=== PATIENT | female | born 1995 | race Caucasian/White ===

== ENCOUNTER 2017-02-10 19:26 | Emergency (ER) | payer OTHER ==
--- NOTE | 2017-02-10 19:29 | PDOC ---
History of Present Illness - History of Present Illness Initial Comments: 02/10/17 19:50 The patient is a 22 year old female, with a significant past medical history of obesity and diabetes (discontinued metformin a while ago), who presents to the emergency department with intermittent upper abdominal pain since 10:30 AM today with new onset of nonbloody emesis 30 minutes prior to ED arrival. The patient also reports having one episode of loose stool today, however, reports her last normal bowel movement to be yesterday morning. She reports her pain intermittently radiates across the bilateral upper abdominal quadrants. She reports drinking Coca-Cola as suggested by her mother to produce gas with little to no alleviation of her symptoms. The patient states she did not eat prior to the onset of her symptoms, however, states she ate two pieces of chicken francese with a couple bites of pasta that did not taste right at 2: 30AM. She denies chest pain, shortness of breath, headache and dizziness. She denies fever, chills, hematochezia and constipation. She denies dysuria, frequency, urgency and hematuria. PAST MEDICAL HISTORY: obesity and diabetes (previously on metformin) PAST SURGICAL HISTORY: no significant history FAMILY HISTORY: no pertinent history SOCIAL HISTORY: Pt lives with family and is employed. MEDICATIONS: reviewed ALLERGIES: As per nursing notes Adult ROS General: No fevers or chills, no weakness, no weight loss HEENT: No change in vision. No sore throat,. No ear pain CardioVascular: No chest pain or shortness of breath Respiratory:No cough, or wheezing. Gastrointestinal: (+) epigastric pain, nausea, vomiting, diarrhea. No constipation, No rectal bleeding Genitourinary: No dysuria, hematuria, or frequency Musculoskeletal: No joint or muscle pain or swelling Neurologic: No headache, vertigo, dizziness or loss of consciousness Psychiatric: nor depression Skin: No rashes or easy bruising Endocrine: no increased thirst or abnormal weight change Allergic: no skin or latex allergy All other systems reviewed and normal Adult Exam: General: Well-nourished well-developed individual, no acute distress HEENT: Throat: Normal, tonsils normal, no erythema or exudate Neck: Supple, no meningeal signs, no lymphadenopathy Eyes::Pupils equal reactive and round, extraocular motion intact Chest: Nontender to palpation Cardiac: S1-S2 normal, regular rate and rhythm, no murmurs rubs or gallops Respiratory: Lungs clear to auscultation bilateral Abdomen: Soft, nondistended, normal bowel sounds, nontender to palpation diffusely Extremities: Warm, dry, no cyanosis, clubbing, or edema Skin: No rashes Neuro: Alert and oriented x3, nonfocal exam, grossly intact, normal gait Psych: Normal mood and affect <Sofia Valle - Last Filed: 02/10/17 21:36> - General History Source: Patient Exam Limitations: No Limitations - History of Present Illness Initial Comments: 02/10/17 21:38 A portion of this note was documented by scribe services under my direction. I have reviewed the details of the note, within reason, and agree with the documentation. The case summary and management plan written by me. Assessment and plan: This is an obese 22-year-old female who comes in complaining of upper abdominal pain. Patient said she's pain has been intermittent and crampy in nature since approximately 10 AM this morning. Patient had eaten some food at approximately 2:30 AM that she thought might be bad. Patient is had one associated episode of diarrhea and 2 episodes of vomiting the most recent one shortly before coming to the ED with it. Patient had a workup including labs that were unremarkable with the exception of a mildly elevated white count of 10.9. There was no left shift. Patient had an ultrasound that showed a fatty liver but otherwise unremarkable with a gallbladder that showed no stones or sludge. Patient feels better in the emergency room and will be discharged home and follow-up with her doctor as needed Patient given copies of her ultrasound report as well as her blood work. <Brien Wilcox I - Last Filed: 02/10/17 21:41> - General Chief Complaint: Pain, Acute Stated Complaint: UPPER ABDOMINAL PAIN Time Seen by Provider: 02/10/17 19:29 Past History <Sofia Valle - Last Filed: 02/10/17 21:36> - Past Medical History Disorders: Yes (PCOS) - Immunization History Immunization Up to Date: Yes - Psycho/Social/Smoking Cessation Hx Anxiety: No Suicidal Ideation: No Smoking History: Never smoked Hx Alcohol Use: No Substance Use Type: None <Brien Wilcox I - Last Filed: 02/10/17 21:41> - Past Medical History Allergies/Adverse Reactions: Allergies Allergy/AdvReac Type Severity Reaction Status Date / Time No Known Allergies Allergy Verified 02/10/17 19:27 Home Medications: Ambulatory Orders NK [No Known Home Medication] 02/10/17 *Physical Exam - Vital Signs Last Vital Signs Temp Pulse Resp BP Pulse Ox 99.2 F 86 16 135/82 99 02/10/17 19:29 02/10/17 19:29 02/10/17 19:29 02/10/17 19:29 02/10/17 19:29 <Sofia Valle - Last Filed: 02/10/17 21:36> ED Treatment Course - LABORATORY CBC & Chemistry Diagram: 02/10/17 19:50 02/10/17 19:50 - ADDITIONAL ORDERS Additional order review: Laboratory Results 02/10/17 19:34 Urine Color Yellow Urine Appearance Clear Urine pH 7.0 Ur Specific [place] 1.020 Urine Protein Negative Urine Glucose (UA) Negative Urine Ketones Negative Urine Blood Negative Urine Nitrite Negative Urine Bilirubin Negative Urine Urobilinogen 0.2 e.u/dl Ur Leukocyte Esterase Negative Urine HCG, Qual Negative - RADIOLOGY Radiograph Interpretation: 02/10/17 21:15 Preliminary read of the patient's CXR by Dr. Wilcox reveals no acute pathology. 02/10/17 21:36 EXAM: Ultrasound abdominal right upper quadrant was read by Ramiro Dsouza MD. at 21:34 EST IMAGES: 40 EXAM DATE AND TIME: 2017-02-10 20:26:29.0 FINDINGS: The gallbladder is mildly contracted. There is no evidence of cholelithiasis, sludge or polyp. The gallbladder wall is normal in thickness, measuring 2 mm. There is no pericholecystic fluid. There is no evidence of ascites fluid. The common bile duct is normal in diameter, measuring 4 mm in diameter. The liver is normal in size, measuring 16.6 cm in length. The hepatic parenchyma exhibits diffuse increased echogenicity suggesting diffuse fatty infiltration. There is no evidence of intrahepatic biliary ductal dilatation. There is no evidence of a hepatic mass or cystic lesion. The pancreatic head and body appear normal in size, contour and echotexture. IMPRESSION: Diffuse hepatic steatosis. The study is otherwise unremarkable. No evidence of cholelithiasis. <Sofia Valle - Last Filed: 02/10/17 21:36> - LABORATORY CBC & Chemistry Diagram: 02/10/17 19:50 02/10/17 19:50 <Brien Wilcox I - Last Filed: 02/10/17 21:41> *DC/Admit/Observation/Transfer - Attestations Scribe Attestion: 02/10/17 19:51 Documentation prepared by Sofia Valle, acting as manager medical writing for Brien Wilcox MD <Sofia Valle - Last Filed: 02/10/17 21:36> - Discharge Dispostion Admit: No <Brien Wilcox I - Last Filed: 02/10/17 21:41> Diagnosis at time of Disposition: Abdominal pain Qualifiers: Abdominal location: upper abdomen, unspecified Qualified Code(s): R10.10 - Upper abdominal pain, unspecified - Discharge Dispostion Disposition: HOME Condition at time of disposition: Stable - Patient Instructions Printed Discharge Instructions: DI for Abdominal Pain-Adult Additional Instructions: Return to the emergency department immediately with ANY new, persistent or worsening symptoms. Continue any medications as previously prescribed by your physician. You should follow up with your primary doctor as soon as possible regarding today's emergency department visit. . Please make sure your doctor reviews the results of your emergency evaluation. Thank you for coming to the Emergency Department today for your care. It was a pleasure to see you today. Please note that your evaluation is INCOMPLETE until you follow-up with your doctor.
[2017-02-10 19:34] VITALS: BP 135/82; PULSE 86; TEMP 99.2; BMI 51.5
[2017-02-10] MEDS ORDERED: SODIUM CHLORIDE 1,000 ML IV ONE (19:44)
[2017-02-10] MEDS ORDERED: HYOSCYAMINE SULFATE 0.125 MG *ODT PO ONE (19:45)
[2017-02-10 19:46] LABS: URINE APPEARANCE Clear; URINE BILIRUBIN Negative (NEGATIVE); URINE BLOOD Negative (NEGATIVE); URINE COLOR YELLOW; URINE GLUCOSE (UA) Negative (NEGATIVE); URINE KETONE Negative (NEGATIVE); URINE LEUK ESTERASE Negative (NEGATIVE); URINE NITRITE Negative (NEGATIVE); URINE PROTEIN Negative (NEGATIVE); URINE UROBILINOGEN 0.2 E.U/dl (0.2-1.0)
[2017-02-10] MEDS ORDERED: HYOSCYAMINE SULFATE 0.125 MG *ODT ONE (19:50)
[2017-02-10 20:04] LABS: BASOPHIL 0.8 % (0-2.0); EOSINOPHIL 0.9 % (0-4.5); MCH 26.7 pg (25.7-33.7); MCHC 34.4 g/dl (32.0-36.0); MEAN CELL VOLUME 77.7 fl (80-96); MEAN PLT VOLUME 9.9 fl (7.5-11.1); NEUTROPHILS 80.3 % (42.8-82.8); PLATELET COUNT 243 K/MM3 (134-434); RDW 14.5 % (11.6-15.6); WHITE BLOOD COUNT 10.9 K/mm3 (4.0-10.8)
[2017-02-10 20:14] LABS: ALK PHOS 54 U/L (32-92); ANION GAP 6 (8-16); BILIRUBIN,TOTAL 0.7 mg/dl (0.2-1.0); CALCIUM 8.6 mg/dl (8.4-10.2); CO2 24 mmol/L (22-28); CREATININE 0.7 mg/dl (0.6-1.3); GLUCOSE,RANDOM 90 mg/dl (74-106); SGOT/AST 18 U/L (10-42); SGPT/ALT 20 U/L (10-40); TOT PROT 6.8 g/dl (6.4-8.3)
== END 2017-02-10 21:46 | disposition home or self-care (01) ==
LOC: FER 19:26
PROC: 3E0337Z Introduction of Electrolytic and Water Balance Substance into Peripheral Vein, Percutaneous Approach (ICD-10-PCS; principal; 2017-02-10)
DX: R10.10 Upper abdominal pain, unspecified (principal)
CPT/HCPCS: 36415; 71010-TC; 76705-TC; 80053; 81003; 83690; 84703; 85025; 99282-25

== ENCOUNTER 2019-08-03 17:40 | Inpatient (IN) | payer OTHER ==
[2019-08-03] MEDS ORDERED: AMPICILLIN SODIUM 2 GM VIAL ONE (18:26)
[2019-08-03] MEDS: ELECTROLYTE-148 SOLN 1,000 ML IV SCH (18:30)
[2019-08-03 19:00] LABS: BASO % 0.6 % (0-2.0); EOS % 0.3 % (0-4.5); HEMATOCRIT 36.9 % (32.4-45.2); HEMOGLOBIN 11.8 GM/dL (10.7-15.3); MEAN CELL VOLUME 74.9 fl (80-96); MEAN PLT VOLUME 10.5 fl (7.5-11.1); MONO % 7.9 % (3.8-10.2); NEUT % 77.2 % (42.8-82.8); PLATELET COUNT 279 K/MM3 (134-434); RBC 4.93 M/mm3 (3.60-5.2); WHITE BLOOD COUNT 10.3 K/mm3 (4.0-10.0)
[2019-08-03 19:02] LABS: RETICULOCYTES 1.28 % (0.5-1.5)
[2019-08-03 19:14] LABS: INR 0.84 (0.83-1.09); PROTHROMBIN TIME (PATIENT) 9.9 SEC (9.7-13.0)
[2019-08-03 19:17] LABS: ACTIVATED PTT 27.7 SECONDS (25.2-36.5)
[2019-08-03 19:22] LABS: BLOOD UREA NITROGEN 11.7 mg/dL (7-18); CALCIUM 8.8 mg/dL (8.5-10.1); CREATININE 0.9 mg/dL (0.55-1.3); GAMMA GLUTAMYL TRANSPEPTIDASE 12 U/L (5-85); POTASSIUM 4.3 mmol/L (3.5-5.1); SGOT/AST 12 U/L (15-37); SGPT/ALT 17 U/L (13-61); URIC ACID 4.3 mg/dL (2.6-7.2)
[2019-08-03] MEDS ORDERED: PROMETHAZINE HCL 25 MG/1 ML VIAL ONE (19:26)
[2019-08-03] MEDS ORDERED: BUTORPHANOL TARTRATE 1 MG/ML VIAL ONE ×2 (19:26)
[2019-08-03 20:01] VITALS: BMI 51.2
--- NOTE | 2019-08-03 20:20 | HP ---
Past Medical History - Primary Care Physician PCP:: Gabby Kelly - Admission Chief Complaint: 24yo @ 39.6wks with painful contructions, no VB, no LOF, +FM;. She denies GARCIA, Visual changes, RUQ pain History of Present Illness: 1. Obesity - BMI 51, GCT normal twice, immpossible to evaluate EFW 2. GBS pos on Ampicillin 3. h/o Anxiety/depression - distant history 4. TDap and Flu vaccines in History Source: Patient, Medical Record Limitations to Obtaining History: No Limitations - Past Medical History ...: 1 ...Para: 0 ...Term: 0 ...: 0 ...Spon : 0 ...Induced : 0 ...Multiple Gestation: 0 ...LMP: 10/28/18 ... Weeks Gestation by Dates: 39.6 ...EDC by Sono: 08/04/19 - Past Surgical History Past Surgical History: Yes: None Hx Myomectomy: No Hx Transabdominal Cerclage: No - Advance Directives Advance Directives: Yes: Living Will - Smoking History Smoking history: Never smoked Have you smoked in the past 12 months: No - Alcohol/Substance Use Hx Alcohol Use: No History of Substance Use: reports: None - Social History Usual Living Arrangement: Yes: Alone Do you think of yourself as: Straight/Heterosexual History of Recent Travel: No Home Medications - Allergies Allergies/Adverse Reactions: Allergies Allergy/AdvReac Type Severity Reaction Status Date / Time No Known Allergies Allergy Verified 08/03/19 18:06 - Home Medications Home Medications: Ambulatory Orders Pnv No.95/Ferrous Fum/Folic AC [ Formula] 1 each PO DAILY 08/03/19 Review of Systems - Review of Systems Constitutional: reports: No Symptoms Eyes: reports: No Symptoms HENT: reports: No Symptoms Neck: reports: No Symptoms Cardiovascular: reports: No Symptoms Respiratory: reports: No Symptoms Gastrointestinal: reports: No Symptoms Breasts: reports: No Symptoms Reported, Other (Painfull COntructions) Musculoskeletal: reports: No Symptoms Integumentary: reports: No Symptoms Neurological: reports: No Symptoms Endocrine: reports: No Symptoms Hematology/Lymphatic: reports: No Symptoms Psychiatric: reports: No Symptoms Pain Intensity: 8 Physical Exam - Maternity Vital Signs: Vital Signs Temperature 97.8 F 12/16/19 18:45 Pulse Rate 79 08/03/19 18:45 Respiratory Rate 18 08/03/19 18:45 Blood Pressure 144/95 08/03/19 18:45 O2 Sat by Pulse Oximetry (%) Constitutional: Yes: Well Nourished, No Distress, Calm Eyes: Yes: WNL, Conjunctiva Clear, EOM Intact HENT: Yes: WNL, Atraumatic, Normocephalic Neck: Yes: WNL, Supple, Trachea Midline Cardiovascular: Yes: WNL, Regular Rate and Rhythm Lungs: Clear to auscultation Breast(s): Yes: WNL - Abdominal Exam/OB Fundal Height: 45 (large abdominal girth) Number of Fetuses: Single Presentation: Vertex Contractions: Yes Regularity: Regular (Q2 min) Intensity: Mod/Strong Monitor Mode: External Heart Rate (range): 145 Heart Rate Location: Midline Category: I Accelerations: Uniform Decelerations: None - Vaginal Exam/OB Vaginal Bleediing: No Speculum Exam: No Dilatation (cm): 4 Effacement (%): 90 Amniotic Membrane Status: Intact Presentation: Vertex/Position Station: -4 - Physical Exam Musculoskeletal: Yes: WNL Extremities: Yes: WNL Edema: Yes Edema: LUE: 1+, LLE: 1+ Integumentary: Yes: WNL ...Motor Strength: WNL Psychiatric: Yes: WNL, Alert, Oriented - Labs Lab Results: CBC, BMP 08/03/19 18:17 08/03/19 18:17 Assessment/Plan 24yo P0 @ 39.6wks in labor with mild preeclampsia Admit to L&D PEC labs, IVF, NPO Pain management now, anesthesia consult requested Unable to evaluate EFW, narrow pelvic outlet will monitor progress of labor and consider c/section if progress stalls will AROM to augment labor once 2nd dose of Ampicillin is given Concerns discussed with patient of possibility of Shoulder dystocia, c/section risks for her Will monitor BPs
[2019-08-03] MEDS ORDERED: NALOXONE HCL 0.4 MG/ML VIAL IVPUSH PRN (20:28)
[2019-08-03] MEDS ORDERED: LIDO 2%/EPI 1:200000 PRESRVFRE (20 ML SDVIAL) ONE (20:30)
[2019-08-03] MEDS ORDERED: FENTANYL/BUPIVACAINE/NS/PF - PCEA - 50 ML DISP.SYRIN EP ONE (20:33)
[2019-08-03] MEDS: FENTANYL/BUPIVACAINE/NS/PF - PCEA - 50 ML DISP.SYRIN EP SCH (20:45)
[2019-08-03] MEDS ORDERED: PHENYLEPHRINE HCL 10 MG/1 ML SINGLE DOSE VIAL ONE (21:07)
[2019-08-03] MEDS ORDERED: ePHEDrine SULFATE 50 MG/1 ML AMPULE ONE (21:07)
[2019-08-03] MEDS ORDERED: DEXTROSE 5%-LACTATED RINGERS 1,000 ML IV SCH (21:15)
[2019-08-03] MEDS ORDERED: BUTORPHANOL TARTRATE 1 MG/ML VIAL IVPUSH ONE (21:21)
[2019-08-03] MEDS ORDERED: PROMETHAZINE HCL 25 MG/1 ML VIAL IVPUSH ONE (21:21)
[2019-08-03] MEDS ORDERED: AMPICILLIN - 2 GM in SODIUM CHLORIDE 100 ML IVPB ONE (21:26)
[2019-08-03 21:53] LABS: EPI CELLS 8.1 /HPF (0-5/HPF); HYALINE CASTS 15 /lpf (0-8); URINE APPEARANCE CLEAR; URINE BACTERIA 387.6 /hpf (NEGATIVE); URINE BILIRUBIN NEGATIVE (NEGATIVE); URINE COLOR YELLOW; URINE GLUCOSE (UA) NEGATIVE (NEGATIVE); URINE KETONE NEGATIVE (NEGATIVE); URINE LEUK ESTERASE NEGATIVE (NEGATIVE); URINE NITRITE NEGATIVE (NEGATIVE); URINE PROTEIN 3+ (NEGATIVE); URINE RBC 1 /hpf (0-4); URINE WBC 1 /hpf (0-5)
[2019-08-03] MEDS: AMPICILLIN - 1 GM in SODIUM CHLORIDE 100 ML IVPB SCH (22:35)
[2019-08-03] MEDS ORDERED: AMPICILLIN SODIUM 1 GM VIAL ONE (22:36)
--- NOTE | 2019-08-03 23:24 | PN ---
Progress Note, Labor Vaginal Exam #1 Labor Exam Date: 08/03/19 Labor Exam Time: 23:00 Heart Rate (range): 150 Dilatation: 5-6 Effacement (%): 90% Amniotic Membrane Status: Ruptured (AROM) Presentation: Vertex/Position Station: -3 Remarks: AROM for augmentation of labor After two doses of Ampicillin given Thick meconium Station of presenting vertex -3 Placed ISC, it is obviously snug on the head, verified, but not working Overall FHR is Category 2, with reassuring features good variability thought, occasional variable decelerations continue monitoring progress of labor Patient is comfortable BPs wnl PEC labs wnl
[2019-08-04] MEDS ORDERED: FENTANYL/BUPIVACAINE/NS/PF - PCEA - 50 ML DISP.SYRIN EP ONE ×2 (00:11→04:08)
[2019-08-04] MEDS ORDERED: AMPICILLIN SODIUM 1 GM VIAL ONE (01:49)
[2019-08-04] MEDS ORDERED: BUPIVACAINE HCL/PF 0.5% (5 MG/ML) 30 ML VIAL IJ ONE (02:28)
[2019-08-04] MEDS ORDERED: ONDANSETRON 4 MG/2 ML VIAL IVPUSH PRN (04:52)
--- NOTE | 2019-08-04 04:53 | PN ---
Progress Note, Labor Vaginal Exam #2 Labor Exam Date: 08/04/19 Labor Exam Time: 04:30 Heart Rate (range): 150, Category 2 Dilatation: 8 Effacement (%): 90 Amniotic Membrane Status: Ruptured Presentation: Vertex/Position Station: -1 Remarks: Asynclitic head application, Vertex -1 station Category 2 FHR - good variability, but repetitive FHR variable decelerations Poor labor progress, patient is uncomfortable risk of shoulder dystocia, meconium aspiration Syndrome discussed again Risk of c/section discussed as well - poor wound healing, DVT, PE, future risk of abnormal placentation Patient understands all the risks and benefits, chooses to precede with c/ section Family fully informed and in agreement Consent signed and witnessed
[2019-08-04] MEDS ORDERED: LIDO 2%/EPI 1:200000 PRESRVFRE (20 ML SDVIAL) ONE (04:57)
[2019-08-04] MEDS ORDERED: PROPOFOL 20 ML ONE ×2 (05:20→05:30)
[2019-08-04] MEDS ORDERED: SUCCINYLCHOLINE CHLORIDE 200 MG/10 ML SYRINGE ONE (05:20)
[2019-08-04] MEDS ORDERED: OXYTOCIN 10 UNITS/ML VIAL ONE (05:23)
[2019-08-04] MEDS ORDERED: ceFAZolin SODIUM 1 GM VIAL ONE (05:26)
[2019-08-04] MEDS ORDERED: MIDAZOLAM HCL 2 MG/2 ML SINGLE DOSE VIAL ONE (05:37)
[2019-08-04] MEDS ORDERED: METOPROLOL TARTRATE 5 MG/5 ML VIAL ONE (05:39)
[2019-08-04] MEDS ORDERED: KETOROLAC TROMETHAMINE 30 MG/1 ML VIAL ONE (05:57)
[2019-08-04] MEDS ORDERED: DEXAMETHASONE SOD PHOSPHATE 4 MG/1 ML VIAL ONE (05:57)
[2019-08-04] MEDS ORDERED: oxyCODONE HCL 5 MG TABLET PO PRN ×2 (06:23)
[2019-08-04] MEDS ORDERED: METHYLERGONOVINE MALEATE 0.2 MG/1 ML AMP IM PRN (06:23)
[2019-08-04] MEDS ORDERED: WITCH HAZEL 50% (TUCKS) 40 PAD/JAR PAD TP PRN (06:23)
[2019-08-04] MEDS ORDERED: BENZOCAINE 20% 57 GM BOTTLE TP PRN (06:23)
[2019-08-04] MEDS ORDERED: LIDOCAINE HCL 2% (20ML MULTI-DOSE VIAL) ONE (06:57)
[2019-08-04] MEDS ORDERED: SEVOFLURANE 250 ML BTL ONE (06:57)
[2019-08-04] MEDS ORDERED: DESFLURANE GAS 240 ML BOTTLE IH ONE (06:58)
--- NOTE | 2019-08-04 06:58 | OP ---
Operative Note - Note: Operative Date: 08/04/19 Pre-Operative Diagnosis: 24yo P 1 @ 39.9wks Category 2 FHR, CPD, thick meconium , BMI - 51 Operation: Primary LST c/section Findings: Viable female infant APGARs 5/9, 6lb 10oz Normal bilateral tubes and ovaries Post-Operative Diagnosis: Same as Pre-op Surgeon: Gabby Kelly [employer] Mechanic: Dorothy Nazario Anesthesiologist/TIME BUYER: Phani Aldana Anesthesia: General, Epidural Specimens Removed: Full term placenta Estimated Blood Loss (mls): 500 Drains, Volume Out (mls): 100 Fluid Volume Replaced (mls): 700 Operative Report Dictated: Yes
--- NOTE | 2019-08-04 07:03 | PN ---
Delivery - Delivery Section: Primary Type of Anesthesia: Epidural, General Episiotomy/Laceration: None EBL (cc): 500 Delivery, Single - Stages of Labor Date 1st Stage Initiatied: 08/03/19 Time 1st Stage Initiated: 15:00 Date of Delivery: 08/04/19 Time of Delivery: 05:36 Date Placenta Delivered: 08/04/19 Time Placenta Delivered: 05:37 Placenta: Yes: Expressed - Condition of Infant [employer] Consultant/Lift Mechanic Present: Yes Name: Saúl Howard Gender: Female Weight: 6 lb 10 oz Position: Right, OA - 1 Minute Total Score: 5 5 Minutes Total Score: 9 - Feeding Plan Initial Plan: Elected not to breastfeed exclusively throughout hospitalization Benefits of Exclusively reinforced: Yes Remarks - Remarks Remarks: Uncomplicated delivery of the head, shoulders cord clamped, cut, given to Neonatology Uterus closed in 2 layers Peritoneum, muscle fascia, subcutaneous space and skin closed
[2019-08-04] MEDS ORDERED: OXYTOCIN 20 UNITS in 0.9% NS 20 UNIT/1,000 ML INFUS.BAG IV ONE (07:12)
[2019-08-04] MEDS: IBUPROFEN 800 MG/8 ML IJ IVPB PRN ×2 (07:30→21:30)
[2019-08-04] MEDS ORDERED: LABETALOL HCL 200 MG TABLET (FP) ONE (08:30)
[2019-08-04] MEDS: LABETALOL HCL 200 MG TABLET (FP) PO SCH ×3 (08:35→23:58)
[2019-08-04] MEDS ORDERED: NIFEdipine E.R. 30 MG TABLET (FP) PO ONE (09:15)
[2019-08-04] MEDS ORDERED: MAGNESIUM SULFATE 20GM/500ML - 20 GM/500 ML INFUS.BAG ONE (09:26)
[2019-08-04] MEDS ORDERED: MAGNESIUM 4GM/H20 - 4 GM/100 ML IVPB IVPB SCH (09:30)
[2019-08-04] MEDS ORDERED: MAGNESIUM SULFATE 20GM/500ML - 20 GM/500 ML INFUS.BAG IVPB SCH (10:00)
[2019-08-04] MEDS: PRENATAL VITAMINS W/ FOLIC ACID TABLET (FP) PO SCH (11:31)
[2019-08-04] MEDS: CEFAZOLIN 1 GM in DEXTROSE 5%-WATER - 50 ML IVPB SCH ×2 (11:31→18:04)
[2019-08-04] MEDS ORDERED: OXYTOCIN 20 UNITS in 0.9% NS 20 UNIT/1,000 ML INFUS.BAG IV SCH (11:45)
[2019-08-04 13:05] LABS: BASO % 0.3 % (0-2.0); HEMATOCRIT 33.7 % (32.4-45.2); HEMOGLOBIN 10.8 GM/dL (10.7-15.3); MCH 23.9 pg (25.7-33.7); MCHC 32.2 g/dl (32.0-36.0); MEAN CELL VOLUME 74.4 fl (80-96); MEAN PLT VOLUME 10.2 fl (7.5-11.1); NEUT % 92.7 % (42.8-82.8); PLATELET COUNT 252 K/MM3 (134-434); RBC 4.54 M/mm3 (3.60-5.2); RDW 15.4 % (11.6-15.6); WHITE BLOOD COUNT 20.6 K/mm3 (4.0-10.0)
[2019-08-04 13:27] LABS: BLOOD UREA NITROGEN 12.1 mg/dL (7-18); CALCIUM 8.4 mg/dL (8.5-10.1); CREATININE 0.8 mg/dL (0.55-1.3); MAGNESIUM 3.5 mg/dL (1.8-2.4); POTASSIUM 4.3 mmol/L (3.5-5.1)
[2019-08-04 13:29] LABS: ANISOCYTOSIS 0; MACROCYTOSIS 0; PLATELET ESTIMATE NORMAL
[2019-08-04 13:34] LABS: BILIRUBIN,DIRECT 0.1 mg/dL (0.0-0.2); BILIRUBIN,TOTAL 0.8 mg/dL (0.2-1); TOT PROT 5.7 g/dl (6.4-8.2)
--- NOTE | 2019-08-04 13:54 | PN ---
Post Progress Note - Subjective Subjective: 24yo s/p c/section POD #0 Elevated BPs noted Reports no GARCIA, Visual changes or RUQ pain Post Day: 0 Type of Delivery: Primary C/S Vital Signs: Vital Signs Temperature 98.2 F 08/04/19 10:00 Pulse Rate 78 08/04/19 12:00 Respiratory Rate 18 08/04/19 13:00 Blood Pressure 111/65 08/04/19 12:00 O2 Sat by Pulse Oximetry (%) 97 08/04/19 09:15 - Labs Labs: CBC WBC 20.6 K/mm3 (4.0-10.0) H 08/04/19 12:48 RBC 4.54 M/mm3 (3.60-5.2) 08/04/19 12:48 Hgb 10.8 GM/dL (10.7-15.3) 08/04/19 12:48 Hct 33.7 % (32.4-45.2) 08/04/19 12:48 MCV 74.4 fl (80-96) L 08/04/19 12:48 MCH 23.9 pg (25.7-33.7) L 08/04/19 12:48 MCHC 32.2 g/dl (32.0-36.0) 08/04/19 12:48 RDW 15.4 % (11.6-15.6) 08/04/19 12:48 Plt Count 252 K/MM3 (134-434) 08/04/19 12:48 MPV 10.2 fl (7.5-11.1) 08/04/19 12:48 Absolute Neuts (auto) 19.1 K/mm3 (1.5-8.0) H 08/04/19 12:48 Neutrophils % 92.7 % (42.8-82.8) H D 08/04/19 12:48 Neutrophils % (Manual) 88.0 % (42.8-82.8) H 08/04/19 12:48 Band Neutrophils % 6.0 % 08/04/19 12:48 Lymphocytes % 3.0 % (8-40) L D 08/04/19 12:48 Lymphocytes % (Manual) 3.0 % (8-40) L 08/04/19 12:48 Monocytes % 4.0 % (3.8-10.2) 08/04/19 12:48 Monocytes % (Manual) 1 % (3.8-10.2) L 08/04/19 12:48 Eosinophils % 0.0 % (0-4.5) D 08/04/19 12:48 Eosinophils % (Manual) 0.0 % (0-4.5) 08/04/19 12:48 Basophils % 0.3 % (0-2.0) 08/04/19 12:48 Basophils % (Manual) 0.0 % (0-2.0) 08/04/19 12:48 Myelocytes % (Man) 0 % (0-2) 08/04/19 12:48 Promyelocytes % (Man) 0 % (0-2) 08/04/19 12:48 Blast Cells % (Manual) 0 % (0-0) 08/04/19 12:48 Nucleated RBC % 0 % (0-0) 08/04/19 12:48 Metamyelocytes 0 % (0-2) 08/04/19 12:48 Hypochromia 0 08/04/19 12:48 Platelet Estimate Normal 08/04/19 12:48 Polychromasia 0 08/04/19 12:48 Poikilocytosis 0 08/04/19 12:48 Anisocytosis 0 08/04/19 12:48 Microcytosis 0 08/04/19 12:48 Macrocytosis 0 08/04/19 12:48 Retic Count 1.28 % (0.5-1.5) 08/03/19 18:17
[2019-08-04] MEDS ORDERED: CEFAZOLIN 1 GM/D5W 1 GM/50 ML BAG ONE (17:57)
[2019-08-04] MEDS ORDERED: IBUPROFEN 800 MG/8 ML IJ IVPB ONE (21:23)
[2019-08-04] MEDS: FENTANYL/BUPIVACAINE/NS/PF - PCEA - 50 ML DISP.SYRIN EP SCH (23:51)
[2019-08-04] MEDS: ELECTROLYTE-148 SOLN 1,000 ML IV SCH (23:52)
[2019-08-05] MEDS: AMPICILLIN - 1 GM in SODIUM CHLORIDE 100 ML IVPB SCH ×2 (00:02→00:03)
[2019-08-05] MEDS ORDERED: CEFAZOLIN 1 GM/D5W 1 GM/50 ML BAG IVPB SCH (01:26)
[2019-08-05] MEDS: IBUPROFEN 600 MG TABLET (FP) PO PRN ×5 (02:12→21:58)
[2019-08-05] MEDS: ACETAMINOPHEN 325 MG TABLET (FP) PO PRN ×5 (02:13→21:58)
[2019-08-05] MEDS: SIMETHICONE 80 MG TAB.CHEW (FP) PO PRN ×4 (02:14→21:58)
[2019-08-05] MEDS ORDERED: BISACODYL 10 MG SUPP.RECT RC PRN (06:23)
--- NOTE | 2019-08-05 07:31 | OP ---
DATE OF OPERATION: 08/04/2019 PREOPERATIVE DIAGNOSIS: A 24-year-old para 1 at 39.9 weeks, category 2 heart rate, cephalopelvic disproportion, thick meconium, body mass index of 51. PROCEDURE PERFORMED: Primary low-segment transverse section. FINDINGS: A viable female infant with Apgars of 5 at one minute and 6 at ten minutes. Estimated weight at 6 pounds 20 ounces. Normal bilateral tubes and ovaries bilaterally. SURGEON: Lawrence Kelly M.D. CAMPUS SECURITY OFFICER: Dorothy Nazario M.D. ANESTHESIOLOGIST: Phani Aldana M.D. ANESTHESIA: General and epidural. SPECIMENS REMOVED: Full term placenta. DESCRIPTION OF PROCEDURE: After ensuring informed consent, the patient was brought to the operating room, where she was placed in the dorsal supine position with a left lateral tilt. A Pfannenstiel skin incision was made with a scalpel and carried down to the level of the fascia with Bovie cautery. Excellent hemostasis was achieved. The fascia was dissected bilaterally with Bovie cautery and superiorly and inferiorly off the rectus abdominis muscle with Bovie cautery. The rectus abdominis muscle was split in the midline. The peritoneum was identified, tented with a Linh clamp and incised with Metzenbaum scissors. The peritoneal incision needed to be stretched superiorly and inferiorly, with good visualization of the underlying bladder. The vesicouterine peritoneum was identified and dissected off the lower uterine segment, retracted with the lower edge of the [place]. A low segment transverse incision was created with the scalpel and the incision extended with bandage scissors in the form of a smiley face. The was wedged transversely, arrested, was delivered atraumatically. The infant was delivered without any difficulty. The cord was clamped and cut. The infant was handed to therapist, Dr. Howard. The placenta was expressed, removed without any difficulty and sent to Pathology. The uterus was cleared of clots and debris. Uterus repaired with 2 layers of Biosyn, a primary layer and an imbricating layer. The abdomen was irrigated. The peritoneum was closed with 0 Biosyn. The muscle was reapproximated in the midline. The fascia was closed with 0 Vicryl continuous suture. Subcutaneous sutures were placed to decrease risk of skin infection and subcutaneous suture was created with a V-Loc 4-0 Monocryl stitch. All instruments and sponges were counted, and they were correct x2. The patient was stable and brought to the recovery room. LAWRENCE KELLY M.D. [id number]
--- NOTE | 2019-08-05 09:04 | PN ---
Post Progress Note - Subjective Subjective: Patient without acute complaints. Reports tolerating oral intake without nausea or vomiting. Ambulating without dizziness. Denies fevers or chills. Pain well controlled with oral pain medication. Pumping/breast feeding without issue. Passing flatus, no BM. Post Day: 1 Type of Delivery: Primary C/S Vital Signs: Vital Signs Temperature 97.8 F 08/05/19 05:40 Pulse Rate 81 08/05/19 05:40 Respiratory Rate 18 08/05/19 06:00 Blood Pressure 115/66 08/05/19 05:40 O2 Sat by Pulse Oximetry (%) 96 08/04/19 19:00 Breast Exam: Yes: Soft Uterus: Yes: Fundus Firm, Fundus below umbilicus, Non-tender Incision: Yes: Dressing dry and intact (dressing removed) Abdomen/GI: Yes: Abdomen soft, Passing flatus Lochia: Yes: Rubra Lochia, amount: Small Extremities: Yes: Calves non-tender, Edema (trace bilat) Perineum: Yes: Intact Activity: Ambulating - Labs Labs: CBC WBC 20.6 K/mm3 (4.0-10.0) H 08/04/19 12:48 RBC 4.54 M/mm3 (3.60-5.2) 08/04/19 12:48 Hgb 10.8 GM/dL (10.7-15.3) 08/04/19 12:48 Hct 33.7 % (32.4-45.2) 08/04/19 12:48 MCV 74.4 fl (80-96) L 08/04/19 12:48 MCH 23.9 pg (25.7-33.7) L 08/04/19 12:48 MCHC 32.2 g/dl (32.0-36.0) 08/04/19 12:48 RDW 15.4 % (11.6-15.6) 08/04/19 12:48 Plt Count 252 K/MM3 (134-434) 08/04/19 12:48 MPV 10.2 fl (7.5-11.1) 08/04/19 12:48 Absolute Neuts (auto) 19.1 K/mm3 (1.5-8.0) H 08/04/19 12:48 Neutrophils % 92.7 % (42.8-82.8) H D 08/04/19 12:48 Neutrophils % (Manual) 88.0 % (42.8-82.8) H 08/04/19 12:48 Band Neutrophils % 6.0 % 08/04/19 12:48 Lymphocytes % 3.0 % (8-40) L D 08/04/19 12:48 Lymphocytes % (Manual) 3.0 % (8-40) L 08/04/19 12:48 Monocytes % 4.0 % (3.8-10.2) 08/04/19 12:48 Monocytes % (Manual) 1 % (3.8-10.2) L 08/04/19 12:48 Eosinophils % 0.0 % (0-4.5) D 08/04/19 12:48 Eosinophils % (Manual) 0.0 % (0-4.5) 08/04/19 12:48 Basophils % 0.3 % (0-2.0) 08/04/19 12:48 Basophils % (Manual) 0.0 % (0-2.0) 08/04/19 12:48 Myelocytes % (Man) 0 % (0-2) 08/04/19 12:48 Promyelocytes % (Man) 0 % (0-2) 08/04/19 12:48 Blast Cells % (Manual) 0 % (0-0) 08/04/19 12:48 Nucleated RBC % 0 % (0-0) 08/04/19 12:48 Metamyelocytes 0 % (0-2) 08/04/19 12:48 Hypochromia 0 08/04/19 12:48 Platelet Estimate Normal 08/04/19 12:48 Polychromasia 0 08/04/19 12:48 Poikilocytosis 0 08/04/19 12:48 Anisocytosis 0 08/04/19 12:48 Microcytosis 0 08/04/19 12:48 Macrocytosis 0 08/04/19 12:48 Retic Count 1.28 % (0.5-1.5) 08/03/19 18:17 Haptoglobin 140 mg/dL (33-278) 08/03/19 18:17 Assessment/Plan POD#1 s/p primary LTC/S doing well, stable, afebrile. Asymptomatic for anemia. BP is normal since last nigh. Plan to hold off on Labetalol Post op care reviewed. Continue routine care. Ambulation encouraged Advance diet as tolerated.
[2019-08-05] MEDS: PRENATAL VITAMINS W/ FOLIC ACID TABLET (FP) PO SCH (09:23)
[2019-08-05] MEDS: LABETALOL HCL 200 MG TABLET (FP) PO SCH ×2 (09:23→22:00)
[2019-08-05] MEDS: ENOXAPARIN NA (PORCINE) 40 MG/0.4 ML DISP.SYRIN SQ SCH (09:23)
--- NOTE | 2019-08-06 03:41 | PN ---
Post Progress Note - Subjective Subjective: Patient without acute complaints. Denies headache, change in vision, right upper quadrant pain. Reports tolerating oral intake without nausea or vomiting. Ambulating without dizziness. Denies fevers or chills. Pain well controlled with oral pain medication. with supplementation. Passing flatus. Post Day: 2 Type of Delivery: Primary C/S Vital Signs: Vital Signs Temperature 98.9 F 08/05/19 22:00 Pulse Rate 79 08/05/19 22:00 Respiratory Rate 18 08/05/19 22:00 Blood Pressure 135/88 08/05/19 22:00 O2 Sat by Pulse Oximetry (%) 96 08/04/19 19:00 Breast Exam: Yes: Soft Uterus: Yes: Fundus Firm, Fundus below umbilicus Incision: Yes: Sutures intact. No: Redness, Oozing Abdomen/GI: Yes: Abdomen soft (obese, nontender) Lochia: Yes: Rubra Lochia, amount: Small Extremities: Yes: Calves non-tender, Edema (+1) Activity: Ambulating - Labs Labs: CBC WBC 20.6 K/mm3 (4.0-10.0) H 08/04/19 12:48 RBC 4.54 M/mm3 (3.60-5.2) 08/04/19 12:48 Hgb 10.8 GM/dL (10.7-15.3) 08/04/19 12:48 Hct 33.7 % (32.4-45.2) 08/04/19 12:48 MCV 74.4 fl (80-96) L 08/04/19 12:48 MCH 23.9 pg (25.7-33.7) L 08/04/19 12:48 MCHC 32.2 g/dl (32.0-36.0) 08/04/19 12:48 RDW 15.4 % (11.6-15.6) 08/04/19 12:48 Plt Count 252 K/MM3 (134-434) 08/04/19 12:48 MPV 10.2 fl (7.5-11.1) 08/04/19 12:48 Absolute Neuts (auto) 19.1 K/mm3 (1.5-8.0) H 08/04/19 12:48 Neutrophils % 92.7 % (42.8-82.8) H D 08/04/19 12:48 Neutrophils % (Manual) 88.0 % (42.8-82.8) H 08/04/19 12:48 Band Neutrophils % 6.0 % 08/04/19 12:48 Lymphocytes % 3.0 % (8-40) L D 08/04/19 12:48 Lymphocytes % (Manual) 3.0 % (8-40) L 08/04/19 12:48 Monocytes % 4.0 % (3.8-10.2) 08/04/19 12:48 Monocytes % (Manual) 1 % (3.8-10.2) L 08/04/19 12:48 Eosinophils % 0.0 % (0-4.5) D 08/04/19 12:48 Eosinophils % (Manual) 0.0 % (0-4.5) 08/04/19 12:48 Basophils % 0.3 % (0-2.0) 08/04/19 12:48 Basophils % (Manual) 0.0 % (0-2.0) 08/04/19 12:48 Myelocytes % (Man) 0 % (0-2) 08/04/19 12:48 Promyelocytes % (Man) 0 % (0-2) 08/04/19 12:48 Blast Cells % (Manual) 0 % (0-0) 08/04/19 12:48 Nucleated RBC % 0 % (0-0) 08/04/19 12:48 Metamyelocytes 0 % (0-2) 08/04/19 12:48 Hypochromia 0 08/04/19 12:48 Platelet Estimate Normal 08/04/19 12:48 Polychromasia 0 08/04/19 12:48 Poikilocytosis 0 08/04/19 12:48 Anisocytosis 0 08/04/19 12:48 Microcytosis 0 08/04/19 12:48 Macrocytosis 0 08/04/19 12:48 Retic Count 1.28 % (0.5-1.5) 08/03/19 18:17 Haptoglobin 140 mg/dL (33-278) 08/03/19 18:17 Assessment/Plan 24 yo POD # 2 s/p primary CD, afebrile, vital signs stable, doing well 1. Continue routine postoperative care. 2. Encourage ambulation and incentive spirometer use 3. Continue oral pain medication 4. BPs well controlled, labetalol PRN - has not used in 24 hours 5. Anticipate discharge home postoperative day #3
[2019-08-06] MEDS: ACETAMINOPHEN 325 MG TABLET (FP) PO PRN ×3 (05:21→22:17)
[2019-08-06] MEDS: IBUPROFEN 600 MG TABLET (FP) PO PRN ×3 (05:21→22:16)
[2019-08-06] MEDS: LABETALOL HCL 200 MG TABLET (FP) PO SCH ×2 (10:16→22:18)
[2019-08-06] MEDS: ENOXAPARIN NA (PORCINE) 40 MG/0.4 ML DISP.SYRIN SQ SCH (10:17)
[2019-08-06] MEDS: PRENATAL VITAMINS W/ FOLIC ACID TABLET (FP) PO SCH (10:17)
[2019-08-06] MEDS: SIMETHICONE 80 MG TAB.CHEW (FP) PO PRN (22:15)
[2019-08-07] MEDS: ACETAMINOPHEN 325 MG TABLET (FP) PO PRN (07:36)
[2019-08-07] MEDS: SIMETHICONE 80 MG TAB.CHEW (FP) PO PRN (07:36)
[2019-08-07] MEDS: IBUPROFEN 600 MG TABLET (FP) PO PRN (07:36)
--- NOTE | 2019-08-07 08:09 | DS ---
Physical Exam-LIFT TRUCK MECHANIC Vital Signs: Vital Signs Temperature 97.9 F 08/07/19 02:00 Pulse Rate 75 08/07/19 02:00 Respiratory Rate 18 08/07/19 02:00 Blood Pressure 142/76 08/07/19 02:00 O2 Sat by Pulse Oximetry (%) 96 08/04/19 19:00 Constitutional: Yes: Well Nourished, No Distress, Calm Eyes: Yes: WNL, Conjunctiva Clear, EOM Intact HENT: Yes: WNL, Atraumatic, Normocephalic Neck: Yes: WNL, Supple, Trachea Midline Cardiovascular: Yes: WNL Respiratory: Yes: WNL, Regular Gastrointestinal: Yes: WNL ...Rectal Exam: Yes: WNL Renal/: Yes: WNL ....Post : Yes: Uterus firm, Uterus non-tender, Slight lochia rubra Breast(s): Yes: WNL Musculoskeletal: Yes: WNL Extremities: Yes: WNL Edema: LLE: Trace, RLE: Trace Integumentary: Yes: WNL Neurological: Yes: WNL, Alert, Oriented ...Motor Strength: WNL Psychiatric: Yes: WNL, Alert, Oriented Labs: CBC, BMP 08/04/19 12:48 08/04/19 12:48 Delivery - Delivery Section: Primary Type of Anesthesia: Epidural, General Episiotomy/Laceration: None EBL (cc): 500 Delivery, Single - Stages of Labor Date 1st Stage Initiatied: 08/03/19 Time 1st Stage Initiated: 15:00 Date of Delivery: 08/04/19 Time of Delivery: 05:36 Time Placenta Delivered: 05:37 Placenta: Yes: Expressed - 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 Name: Saúl Howard Infant Gender: Female Weight: 6 lb 10 oz Position: Right, OA Total Hours ROM (Hrs/Mins): 6 HRS/ 97 MINUTES - 1 Minute Total Score: 5 5 Minutes Total Score: 9 - Feeding Plan Initial Plan: Elected not to breastfeed exclusively throughout hospitalization Benefits of Exclusively reinforced: Yes Discharge Summary Problems reviewed: Yes Reason For Visit: labor elevated BP Procedures: Principal: primary LST c/s Other Procedures: none Hospital Course: BP elevation Health Concerns: obesity, elevated BP Plan of Treatment: wt loss, exercise , check BP in one week follow up with PCP Goals: normal BMI, normotensive Condition: Good - Instructions Diet, Activity, Other Instructions: regular diet, no intercourse ,if fever. pain , heavy vaginal bleeding,headache call MD follow up office 1 week Referrals: Gabby Kelly MD [Staff Physician] - Disposition: HOME - Home Medications Comprehensive Discharge Medication List: Ambulatory Orders Pnv No.95/Ferrous Fum/Folic AC [ Formula] 1 each PO DAILY 08/03/19 Ibuprofen [Motrin -] 600 mg PO QID #28 tablet 08/07/19
[2019-08-07 09:10] LABS: BASO % 0.5 % (0-2.0); EOS % 2.3 % (0-4.5); HEMATOCRIT 28.4 % (32.4-45.2); LYMPH % 15.5 % (8-40); MCH 23.8 pg (25.7-33.7); MCHC 31.8 g/dl (32.0-36.0); MEAN CELL VOLUME 74.9 fl (80-96); MEAN PLT VOLUME 9.8 fl (7.5-11.1); NEUT % 75.7 % (42.8-82.8); PLATELET COUNT 198 K/MM3 (134-434); RBC 3.79 M/mm3 (3.60-5.2); RDW 15.6 % (11.6-15.6); WHITE BLOOD COUNT 7.2 K/mm3 (4.0-10.0)
[2019-08-07 09:13] VITALS: BP 131/86; PULSE 81; TEMP 98.3
[2019-08-07] MEDS: ENOXAPARIN NA (PORCINE) 40 MG/0.4 ML DISP.SYRIN SQ SCH (10:49)
[2019-08-07] MEDS: PRENATAL VITAMINS W/ FOLIC ACID TABLET (FP) PO SCH (10:49)
[2019-08-07] MEDS: LABETALOL HCL 200 MG TABLET (FP) PO SCH (11:04)
--- NOTE | 2019-08-11 16:49 | PATH ---
Surgical Pathology Report Patient Name: JACK WING Med. Rec. 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 Specimen(s) Received PLACENTA Clinical History 24 year old female , 39.6 weeks, history of anxiety, depression and obesity Final Diagnosis PLACENTA, SECTION: 449 G THIRD TRIMESTER PLACENTA WITH TRIVASCULAR UMBILICAL CORD, FOCAL INTRAPARENCHYMAL HEMORRHAGE (~10% OF PLACENTAL SURFACE), AND PLACENTAL MEMBRANES WITH MECONIUM-LADEN MACROPHAGES. Electronically Signed Reyna Nazario M.D. Gross Description Received fresh labeled placenta is a 449 gram, 14.0 x 12.5 x 5.0 cm. placenta with attached membranes and umbilical cord. The attached membranes are lewis green, meconium stained, translucent with focal opacities and insert marginally. The umbilical cord measures 11.5 cm. in length and averages 0.8 cm. in diameter. The cord inserts eccentrically, 3 cm. to the nearest margin. No true knots or strictures are identified. Cut surface of the umbilical cord reveals 3 vessels. The surface is gaming green, meconium stained with minimal fibrin deposition and appropriate caliber vessels. The maternal surface is red-brown and intact. Sectioning reveals a 1.4 cm greatest dimension hemorrhagic intraparenchymal lesion. The remaining placental parenchyma is red-brown and spongy. 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 08/10/2019 saudi08/10/2019
== END 2019-08-07 14:00 | disposition home or self-care (01) | DRG 787 ==
LOC: JDEL 17:40 → JLDR 18:00 → J3W 08-05 00:11
PROVIDERS: ADMIT Obstetrics & Gynecology; ATTEND Obstetrics & Gynecology
PROC: 10D00Z1 Extraction of Products of Conception, Low, Open Approach (ICD-10-PCS; principal; 2019-08-04)
DX: O76 Abnormality in fetal heart rate and rhythm complicating labor and delivery (principal); O98.82 Other maternal infectious and parasitic diseases complicating childbirth; O77.0 Labor and delivery complicated by meconium in amniotic fluid; O99.824 Streptococcus B carrier state complicating childbirth; O33.9 Maternal care for disproportion, unspecified; Z3A.39 39 weeks gestation of pregnancy; Z37.0 Single live birth
CPT/HCPCS: 36415; 36600; 80048; 80076; 81003; 82803; 82977; 83010; 83735; 84450; 84460; 84550; 85025; 85032; 85044; 85610; 85730; 86593; 86850; 86900; 86901; 87389; 88307-TC

== ENCOUNTER 2019-10-22 17:20 | Emergency (ER) | payer OTHER ==
[2019-10-22 17:48] VITALS: BMI 52.3
[2019-10-22] MEDS ORDERED: MAG HYDROX/AL HYDROX/SIMETH 30 ML UNIT-DOSE CUP PO ONE (18:05)
[2019-10-22] MEDS ORDERED: FAMOTIDINE 10 MG TABLET PO ONE (18:05)
[2019-10-22] MEDS ORDERED: ACETAMINOPHEN 500 MG TABLET (FP) PO ONE (18:07)
[2019-10-22] MEDS ORDERED: ACETAMINOPHEN 500 MG TABLET (FP) ONE (18:13)
[2019-10-22] MEDS ORDERED: FAMOTIDINE 10 MG TABLET ONE (18:13)
[2019-10-22] MEDS ORDERED: MAG HYDROX/AL HYDROX/SIMETH 30 ML UNIT-DOSE CUP ONE (18:13)
--- NOTE | 2019-10-22 18:15 | PDOC ---
History of Present Illness - General Chief Complaint: Nausea/Vomiting Stated Complaint: VOMITED Time Seen by Provider: 10/22/19 17:54 History Source: Patient Exam Limitations: No Limitations - History of Present Illness Initial Comments: 10/23/19 21:32 24F presenting with epigastric pain starting yesterday after eating ruba's. experienced nausea shortly after and then had one episode of nbnb vomiting. abdominal pain is colicky, dull, and nonradiating. Denies f/c, cough, cp/sob. No current nausea. Denies diarrhea, dysuria. No sick contacts. + recent abx use post in July 2019. NKDA. PCP Jd Del Rosario. Denies etoh. PO tolerant. Pt was sent in by mother to be checked out. Past History - Past Medical History Allergies/Adverse Reactions: Allergies Allergy/AdvReac Type Severity Reaction Status Date / Time No Known Allergies Allergy Verified 10/22/19 17:50 Home Medications: Ambulatory Orders Norethindrone [Nohelia] 0.35 mg PO DAILY 10/22/19 Asthma: No Cancer: No Cardiac Disorders: No COPD: No Diabetes: No Disorders: Yes (PCOS) HTN: No Seizures: No Thyroid Disease: No - Immunization History Immunization Up to Date: Yes - Psycho Social/Smoking Cessation Hx Smoking History: Never smoked Have you smoked in the past 12 months: No Hx Alcohol Use: No Drug/Substance Use Hx: No Substance Use Type: None Hx Substance Use Treatment: No Review of Systems - Review of Systems Able to Perform ROS?: Yes Comments:: 10/23/19 21:32 CONSTITUTIONAL: Denies F / C HEENT: Denies sore throat, rhinorrhea RESP: Denies SOB, cough CARD: Denies chest pain GI: endorses epigastric pain. endorsed prior nausea and vomiting x1. Denies Diarrhea,inability to tolerate PO : Denies dysuria SKIN: Denies rashes *Physical Exam - Vital Signs Last Vital Signs Temp Pulse Resp BP Pulse Ox 99.7 F H 110 H 18 120/73 100 10/22/19 17:27 10/22/19 17:27 10/22/19 17:27 10/22/19 17:27 10/22/19 17:27 - Physical Exam 10/23/19 21:32 GEN: Well appearing, NAD, comfortable. AAOx3. HEENT: NC/AT. No facial asymmetry. Normal voice. Supple neck w/ FROM. CV: S1/S2, RRR, no m/r/g LUNG: CTAB, no wheezes, crackles, rales, rhonchi. GI: Moderate TTP epigastrium o/w soft, ndnt, +BS, no guarding, no rebound. Obese. No masses. MSK: No obvious deformities of all extremities. SKIN: Warm, dry, no rashes appreciated. PSYCH: Normal mood and affect. NEURO: Moving all extremities well. Medical Decision Making - Medical Decision Making 10/22/19 18:07 24F c/o colicky nonradiating epigastric pain x 1 day after eating ruba's. prior nausea and nbnb vomiting x1. no etoh. midepigastric TTP, borderline temp., mild tachycardia. DDx - likely gastroenteritis; consider PUD, gastritis; atypical H&P for biliary process; unlikely pancreatitis - pepcid, maalox, and tylenol - PO fluids - recheck VS - DC home Discharge - Discharge Information Problems reviewed: Yes Clinical Impression/Diagnosis: Epigastric pain Condition: Good Disposition: HOME - Admission No - Follow up/Referral Referrals: Toni Del Rosario MD [Primary Care Provider] - - Patient Discharge Instructions Patient Printed Discharge Instructions: DI for Epigastric Pain Additional Instructions: Avoid spicy foods, greasy foods, and heavy meals. Take tylenol, pepcid, and maalox for your abdominal pain. These can be purchased over the counter. Follow the directions on the label for use. You received your first dose of all three medications in the Emergency Department. Follow up with your primary care doctor in the next 14 days. Immediately return to the nearest Emergency Department if you experience: - worsening or changing pain - pain that does not resolve in the next 3 days - persistent vomiting - inability to eat or drink - fever, chest pain, shortness of breath - anything that concerns you - Post Discharge Activity
--- NOTE | 2019-10-22 18:42 | PDOC ---
Attending Attestation - Resident Resident Name: Viral Johnston - ED Attending Attestation I have performed the following: I have examined & evaluated the patient, The case was reviewed & discussed with the resident, I agree w/resident's findings & plan - HPI HPI: 10/22/19 18:38 Healthy 24-year-old female presents with epigastric discomfort in the setting of a single episode of vomiting last night. Patient was in usual state of good health, ate [employer] for dinner last night, 8 hours later vomited food content without blood or bile. Has tolerated normal diet since then, but reporting some epigastric discomfort/burning so her mom sent her and her sister for evaluation. No recent travel or sick contacts, no recent antibiotics, no history of gastritis or endoscopy, no excessive alcohol or NSAID use. in July, otherwise no abdominal surgical history. - Physicial Exam PE: 10/22/19 18:39 Low-grade fever, slight tachycardia, blood pressure normal Morbidly obese, but well-appearing seated comfortably in stretcher speaking full sentences No jaundice or pallor, moist mucosa Heart is regular slight tachycardia, lungs are clear Abdomen is soft/nondistended, epigastric discomfort to palpation without guarding or rebound, no right upper quadrant tenderness. No CVA tenderness. - Medical Decision Making 10/22/19 18:40 24-year-old female with dyspepsia following a single episode of vomiting last night after eating [employer]ie[employer]. Likely food mediated versus viral dyspepsia, no peritoneal findings on examination, not consistent with biliary versus pancreatic etiology. Well-hydrated here without red flags on history or physical exam. Tylenol for low-grade fever No indication for emergent work-up at this time Trial of Pepcid and Maalox Check urine If above is within normal limits, can discharge with return precautions.
[2019-10-22 19:01] VITALS: BP 98/56; PULSE 102; TEMP 99.2
== END 2019-10-22 19:10 | disposition home or self-care (01) ==
LOC: FER 17:20
DX: R10.13 Epigastric pain (principal)
CPT/HCPCS: 81025; 99283-25